=== PATIENT | female | born 1970 ===

== ENCOUNTER 2018-06-11 08:14 | Outpatient (CLI) | payer OTHER | END 2018-06-11 08:18 | disposition home or self-care (01) | LOC: SONOGRAMA 08:14 | DX: E04.2 Nontoxic multinodular goiter (principal) ==

== ENCOUNTER 2018-10-01 07:52 | Outpatient (CLI) | payer OTHER | END 2018-10-01 07:56 | disposition home or self-care (01) | LOC: SONOGRAMA 07:52 | DX: E04.2 Nontoxic multinodular goiter (principal) ==